=== PATIENT | female | born 1990 | race Caucasian/White ===

== ENCOUNTER 2021-01-12 05:45 | Inpatient (IN) | payer BC, SELFPAY ==
[~2021-01-12] VITALS: Ht 157.5 cm; Wt 72.6 kg
[2021-01-12] MEDS ORDERED: CITRIC ACID/SODIUM CITRATE 30 ML UDC PO SCH (06:00)
[2021-01-12] MEDS ORDERED: LACTATED RINGERS 1,000 ML IV SCH (06:00)
[2021-01-12 06:08] VITALS: BP 113/73
[2021-01-12] MEDS ORDERED: PREN-256 PO (06:14)
[2021-01-12 06:38] LABS: APPEARANCE,URINE SL CLOUDY (CLEAR); BILIRUBIN,URINE NEGATIVE (NEGATIVE); BLOOD, URINE NEGATIVE (NEGATIVE); COLOR,URINE YELLOW (YELLOW); LEUKOCYTE ESTERASE ,URINE NEGATIVE (NEGATIVE); NITRITE, URINE NEGATIVE (NEGATIVE); PH,URINE 5.5 (5.0-9.0); UGLUCOSE NEGATIVE (NEGATIVE)
[2021-01-12 06:38] LABS: BASOPHILS % (AUTO) 0.1 % (0.0-2.0); EOSINOPHILS % (AUTO) 0.1 % (0.0-4.0); HEMATOCRIT 39.3 % (36-48); HEMOGLOBIN 13.2 g/dL (12.0-16.0); LYMPHOCYTES # (AUTO) 1.9 K/uL (2.5-16.5); LYMPHOCYTES % (AUTO) 25.3 % (20.5-51.1); MEAN CORPUSCULAR HEMOGLOBIN 31 pg (27-31); MEAN CORPUSCULAR HGB CONC 34 g/dL (33-37); MEAN CORPUSCULAR VOLUME 91.2 fL (80-94); MONOCYTES # (AUTO) 0.4 K/uL (0.8-1.0); MONOCYTES % (AUTO) 5.6 % (1.7-9.3); NEUTROPHILS # (AUTO) 5.2 K/uL (1.8-7.7); NEUTROPHILS % (AUTO) 68.9 % (42.2-75.2); PLATELET COUNT (AUTO) 151 K/uL (140-450); RED BLOOD CELL COUNT(AUTO) 4.31 MIL/uL (4.20-5.40); RED CELL DISTRIBUTION WIDTH 15.7 % (11.6-13.7); WHITE BLOOD COUNT (AUTO) 7.5 K/uL (4.8-10.8)
[2021-01-12 06:59] LABS: PROTHROMBIN TIME 8.7 secs (10.8-13.4)
[2021-01-12 07:06] LABS: ALBUMIN 2.7 g/dL (3.4-5.0); ANION GAP 14.9 (8-16); CARBON DIOXIDE 22.1 mmol/L (21-32); CREATININE 0.8 mg/dL (0.6-1.3); TOTAL BILIRUBIN 0.3 mg/dL (0.0-1.0)
[2021-01-12] MEDS ORDERED: TERBUTALINE 1 MG/ML VIAL SUBQ SCH (07:25)
[2021-01-12] MEDS ORDERED: TERBUTALINE 1 MG/ML VIAL SUBQ ONE (07:25)
--- NOTE | 2021-01-12 08:37 | NUR ---
PATIENT HAS BEEN SCREENED AND CATEGORIZED LOW NUTRITION RISK. PATIENT WILL BE SEEN WITHIN 7 DAYS OF ADMISSION. 01/18/[address]
[2021-01-12 09:33] LABS: CALCIUM OXALATE CRYSTALS,UR 0-10 /HPF (None Seen); RBC,URINE 0-5 /HPF (0-5); WBC,URINE 0-5 /HPF (0-5)
[2021-01-12] MEDS ORDERED: ONDANSETRON 4 MG/2 ML VIAL ONE (12:07)
[2021-01-12] MEDS ORDERED: METOCLOPRAMIDE 10 MG/2 ML INJ VIAL ONE (12:08)
[2021-01-12] MEDS ORDERED: MORPHINE PRES FREE 10 MG/10 ML AMP IV ONE (12:08)
[2021-01-12] MEDS ORDERED: OXYTOCIN 10 UNITS/ML VIAL ONE (12:08)
[2021-01-12] MEDS ORDERED: OXYTOCIN 20 UNITS/LR PREMIX 1,000 ML IV ONE ×2 (12:08→12:39)
[2021-01-12] MEDS ORDERED: METHYLERGONOVINE 0.2 MG/ML AMP ONE (12:17)
[2021-01-12] MEDS ORDERED: SIMETHICONE 80 MG TAB.CHEW PO PRN (12:40)
[2021-01-12] MEDS ORDERED: IBUPROFEN 800 MG TAB PO PRN (12:40)
[2021-01-12] MEDS ORDERED: METHYLERGONOVINE 0.2 MG/ML AMP IM PRN (12:40)
[2021-01-12] MEDS ORDERED: KETOROLAC 30 MG/ML VIAL IVP PRN (12:40)
[2021-01-12] MEDS ORDERED: oxyCODONE/APAP 5/325 MG 1 TAB TAB PO PRN ×3 (12:40→13:55)
[2021-01-12] MEDS ORDERED: TEMAZEPAM 15 MG CAP PO PRN (12:40)
[2021-01-12] MEDS ORDERED: MEPERIDINE 25 MG/ML SYR ONE (12:54)
[2021-01-12] MEDS: OXYTOCIN 20 UNITS in LACTATED RINGERS 1,000 ML IV SCH ×2 (13:10→19:47)
[2021-01-12] MEDS ORDERED: oxyCODONE 5 MG TAB PO PRN ×2 (20:50)
[2021-01-12] MEDS ORDERED: IBUPROFEN 200 MG TAB PO PRN (20:50)
[2021-01-12] MEDS: DOCUSATE SOD/SENNA 50/8.6 MG 1 TAB PO SCH (21:00)
[2021-01-13] MEDS ORDERED: OXYTOCIN 20 UNITS/LR PREMIX 1,000 ML IV ONE (03:11)
[2021-01-13] MEDS: OXYTOCIN 20 UNITS in LACTATED RINGERS 1,000 ML IV SCH (03:49)
[2021-01-13] MEDS ORDERED: oxyCODONE/APAP 5/325 MG 1 TAB TAB PO PRN ×2 (06:00)
[2021-01-13 07:05] LABS: BASOPHILS % (AUTO) 0.1 % (0.0-2.0); EOSINOPHILS % (AUTO) 0.1 % (0.0-4.0); HEMATOCRIT 35.7 % (36-48); HEMOGLOBIN 11.9 g/dL (12.0-16.0); LYMPHOCYTES # (AUTO) 1.6 K/uL (2.5-16.5); LYMPHOCYTES % (AUTO) 14.3 % (20.5-51.1); MEAN CORPUSCULAR HEMOGLOBIN 30 pg (27-31); MEAN CORPUSCULAR HGB CONC 33 g/dL (33-37); MEAN CORPUSCULAR VOLUME 90.9 fL (80-94); MONOCYTES # (AUTO) 0.8 K/uL (0.8-1.0); MONOCYTES % (AUTO) 7.1 % (1.7-9.3); NEUTROPHILS # (AUTO) 8.7 K/uL (1.8-7.7); NEUTROPHILS % (AUTO) 78.4 % (42.2-75.2); PLATELET COUNT (AUTO) 124 K/uL (140-450); RED BLOOD CELL COUNT(AUTO) 3.93 MIL/uL (4.20-5.40); RED CELL DISTRIBUTION WIDTH 15.1 % (11.6-13.7); WHITE BLOOD COUNT (AUTO) 11.1 K/uL (4.8-10.8)
[2021-01-13] MEDS: DOCUSATE SOD/SENNA 50/8.6 MG 1 TAB PO SCH (21:03)
[2021-01-14] MEDS ORDERED: CAMERA MC ONE (03:11)
[2021-01-14] MEDS ORDERED: IBUP-1842 PO (10:26)
[2021-01-14] MEDS ORDERED: FERR325E14 PO ×2 (10:27→10:28)
== END 2021-01-14 13:35 | disposition home or self-care (01) | DRG 788 ==
LOC: MLD 05:45 → OBSVTOIN 06:04 → MFCC 14:20
PROVIDERS: ADMIT Obstetrics & Gynecology; ATTEND Obstetrics & Gynecology
PROC: 10D00Z1 Extraction of Products of Conception, Low, Open Approach (ICD-10-PCS; principal; 2021-01-12 12:00)
DX: O34.211 Maternal care for low transverse scar from previous cesarean delivery (principal); O24.429 Gestational diabetes mellitus in childbirth, unspecified control; Z20.822 Contact with and (suspected) exposure to COVID-19; Z3A.38 38 weeks gestation of pregnancy; Z37.0 Single live birth
CPT/HCPCS: 36415; 51702; 80053; 81001; 82948; 85025; 85610; 85730; 86592; 86886; 86900; 86901; G0378; J0690; J2175; J2210; J2270; J2405; J2590; J2765; J3105; J7060; J7120